=== PATIENT | male | born 2000 | race American Indian/Alaskan Native ===

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

== ENCOUNTER 2023-12-30 06:44 | Emergency (ER) | payer OTHER ==
[~2023-12-30] VITALS: Ht 167.6 cm; Wt 113.0 kg
[~2023-12-30 06:44] MED LIST changes: +VENTOLIN HFA18 GM INH
[2023-12-30 07:17] VITALS: BP 157/113
== END 2023-12-30 07:17 | disposition home or self-care (01) ==
LOC: ED 06:44
DX: Z02.89 Encounter for other administrative examinations (principal)
CPT/HCPCS: 99283